=== PATIENT | male | born 1990 | race American Indian/Alaskan Native ===

== ENCOUNTER 2022-02-11 09:13 | Emergency (ER) | payer MEDICAID, OTHER ==
[~2022-02-11] VITALS: Ht 165.1 cm; Wt 64.0 kg
[~2022-02-11 09:13] MED LIST: CYAN100081 PO; DULO30CA2 PO; GABA-532 PO; LEVE1000 PO; PRED10TA PO; ZONI100C45 PO; [UNRECOGNIZED DRUG - CODE] PO
[2022-02-11 10:30] VITALS: BP 120/79
[2022-02-11] MEDS ORDERED: SODIUM CHLORIDE 0.9% 1,000 ML IV ONE (12:45)
[2022-02-11 12:46] LABS: BASOPHILS % 0.4 % (0.0-2.0); EOSINOPHILS % 1.9 % (0.0-5.0); HEMATOCRIT. 39.9 % (42.0-52.0); HEMOGLOBIN. 13.9 g/dL (14.0-18.0); LYMPHOCYTES % 44.1 % (20.0-50.0); MEAN CORPUSCULAR HEMOGLOBIN 31.8 pg (28.0-32.0); MEAN CORPUSCULAR VOLUME 91.4 fL (80.0-94.0); MEAN PLATELET VOLUME 10.5 fl (7.4-10.4); MONOCYTES % 6.4 % (2.0-8.0); NEUTROPHILS % 47.2 % (40.0-76.0); PLATELET 99 x1000/uL (130-400); RED BLOOD CELL COUNT 4.37 mill/uL (4.7-6.1); RED CELL DISTRIBUTION WIDTH 13.3 % (11.6-14.6)
[2022-02-11 12:51] LABS: CHLORIDE 108 mEq/L (98-107)
== END 2022-02-11 13:20 | disposition home or self-care (01) ==
LOC: ER 09:39
DX: R56.9 Unspecified convulsions (principal); Z79.899 Other long term (current) drug therapy; Z88.0 Allergy status to penicillin
CPT/HCPCS: 36415; 80053; 85025; 96360; 99283; J7030